=== PATIENT | male | born 1960 | race Caucasian/White ===

== ENCOUNTER 2024-03-23 18:02 | Emergency (ER) | payer OTHER ==
[2024-03-23 18:15] VITALS: RESP 18
--- NOTE | 2024-03-23 18:47 | ED ---
GI Bleed HPI - General Source: patient, RN notes reviewed Mode of arrival: ambulatory Limitations: no limitations <Fouzia French - Last Filed: 03/23/24 18:46> - History of Present Illness MD complaint: melena Onset/Timin -: week(s) Quality: dull Consistency: intermittent, now resolved Associated Symptoms: denies other symptoms Treatments Prior to Arrival: none <Dov Lozoya - Last Filed: 04/05/24 04:52> - General Chief complaint: GI Bleed Stated complaint: GI BLEED Time Seen by Provider: 03/23/24 18:46 - History of Present Illness Initial comments: Quick note: 63-year-old male presented to the ER with a chief complaint of black tarry stools. Patient reports his first episode occurred about a week ago. He notes over the weekend he has had multiple episode of dark tarry/bloody stools. Patient denies any blood thinner use. He has recently taken Pepto-Bismol. He does endorse mild left lower quadrant abdominal pain. (Fouzia French) As noted, the patient had dark tarry stool with some blood 1 week ago. He had further episodes, 3 of those on Friday and 2 yesterday. The patient did have some right lower quadrant pain, and contrast to note above, but states none currently. No fever or chills. No nausea or vomiting. No change in urination. Patient states that he reported the symptoms to his primary physician, Dr. Hurst, and was directed by the clinic to go to the emergency department " have imaging." (Dov Lozoya) - Related Data Previous Rx's Medication Instructions Recorded Pantoprazole [Protonix] 40 mg PO DAILY #10 tab 03/24/24 Allergies Allergy/AdvReac Type Severity Reaction Status Date / Time Sulfa (Sulfonamide AdvReac Swelling Verified 03/23/24 18:15 Antibiotics) Review of Systems ROS Other: All systems not noted in ROS Statement are negative. <Fouzia French - Last Filed: 03/23/24 18:46> ROS Other: All systems not noted in ROS Statement are negative. Constitutional: Denies: fever, chills Respiratory: Denies: cough, dyspnea Cardiovascular: Denies: chest pain, palpitations Gastrointestinal: Reports: abdominal pain, melena. Denies: nausea, vomiting, diarrhea, constipation, hematemesis Genitourinary: Denies: dysuria, hematuria, testicular pain Musculoskeletal: Denies: back pain Skin: Denies: rash Neurological: Denies: headache, weakness, numbness Hematological/Lymphatic: Denies: easy bleeding <DevoraDov - Last Filed: 04/05/24 04:52> ROS Statement: Those systems with pertinent positive or pertinent negative responses have been documented in the HPI. Past Medical History Past Medical History: Diabetes Mellitus, Hyperlipidemia, Hypertension History of Any Multi-Drug Resistant Organisms: None Reported Past Surgical History: Hernia Repair Past Psychological History: No Psychological Hx Reported Smoking Status: Current some day smoker Past Alcohol Use History: None Reported Past Drug Use History: None Reported <Fouzia French - Last Filed: 03/23/24 18:46> General Exam Limitations: no limitations <FarazMar mercadonn - Last Filed: 03/23/24 18:46> Limitations: no limitations General appearance: alert, in no apparent distress Head exam: Present: atraumatic, normocephalic Eye exam: Present: normal appearance. Absent: scleral icterus, conjunctival injection ENT exam: Present: normal oropharynx Neck exam: Present: normal inspection Respiratory exam: Present: normal lung sounds bilaterally. Absent: respiratory distress, wheezes, rales, rhonchi, stridor, accessory muscle use Cardiovascular Exam: Present: regular rate, normal rhythm. Absent: normal heart sounds, systolic murmur, diastolic murmur, rubs, gallop GI/Abdominal exam: Present: soft. Absent: distended, tenderness, guarding, rebound, rigid, mass Rectal exam: Present: other (Patient declines) Extremities exam: Present: normal inspection, normal capillary refill. Absent: pedal edema, calf tenderness Back exam: Present: normal inspection. Absent: CVA tenderness (R), CVA tenderness (L) Neurological exam: Present: alert Skin exam: Present: warm, dry, intact, normal color. Absent: rash <Dov Lozoya - Last Filed: 04/05/24 04:52> - General Exam Comments Initial Comments: Visual Physical Exam Vital signs reviewed General: Well-appearing, nontoxic, no acute distress. Head: Normocephalic, atraumatic Eyes: PERRLA, EOMI ENT: Airway patent Chest: Nonlabored breathing Skin: No visual rash, normal skin tone Neuro: Alert and oriented 3 Musculoskeletal: No gross abnormalities (Fouzia French) Course Vital Signs 03/23/24 03/23/24 03/24/24 18:11 21:40 00:07 Temperature 128 F H 97.9 F Pulse Rate 91 79 Respiratory 18 18 Rate Blood Pressure 128/74 124/75 O2 Sat by Pulse 97 96 Oximetry 03/24/24 01:40 Temperature Pulse Rate 76 Respiratory 18 Rate Blood Pressure 115/80 O2 Sat by Pulse 97 Oximetry Medical Decision Making <Fouzia French - Last Filed: 03/23/24 18:46> - Lab Data Result diagrams: 03/23/24 21:40 03/23/24 21:40 <Dov Lozoya - Last Filed: 04/05/24 04:52> - Medical Decision Making I performed the quick note portion of this chart. Electronically signed by Fouzia French PA-C (Fouzia French) This patient is a 63-year-old man here with complaint of gastrointestinal bleeding. The patient's hemoglobin is lower than what is his usual. The patient did have tachycardia measured in the triage area though on my exam his heart rate is normal. His blood pressure normal. He had no further episodes of GI bleeding here. I did recommend that the patient be seen by gastroenterology which would require transfer as there is no coverage here tonight. The patient and I did have prolonged discussion, as well as including his , and they would like to follow-up as outpatient. As long as the patient has no further bleeding this may be acceptable. We discussed further care and follow-up as well as return parameters. The patient had CT of the abdomen pelvis that I interpreted as negative for free air, obstruction, or other acute surgical condition. Was pt. sent in by a medical professional or institution ([facility]rak[facility], [facility], urgent care, hospital, or fci...) When possible be specific @ -[No] Did you speak to anyone other than the patient for history (EMS, parent, family, police, friend...)? What history was obtained from this source @ -[Patient's contributed Did you review nursing and triage notes (agree or disagree)? Why? @ -[I reviewed and agree with nursing and triage notes] Were old charts reviewed (outside hosp., previous admission, EMS record, old EKG, old radiological studies, urgent care reports/EKG's, fci records)? Report findings @ -[No old charts were reviewed] Differential Diagnosis (chest pain, altered mental status, abdominal pain women, abdominal pain men, vaginal bleeding, weakness, fever, dyspnea, syncope, headache, dizziness, GI bleed, back pain, seizure, CVA, palpatations, mental health, musculoskeletal)? @ -[Differential GI Bleed: Esophageal varices, aortoenteric fistula, Renita-Wray, gastritis, peptic ulcer disease, diverticulosis, inflammatory bowel disease, hemorrhoids, fissure, colitis, malignancy, Meckels diverticulum, this is not meant to be an all- inclusive list. EKG interpreted by me (3pts min.). @ -[As above] X-rays interpreted by me (1pt min.). @ -[None done] CT interpreted by me (1pt min.). @ -I interpreted as above U/S interpreted by me (1pt. min.). @ -[None done] What testing was considered but not performed or refused? (CT, X-rays, U/S, labs)? Why? @ -[None] What meds were considered but not given or refused? Why? @ -[None] Did you discuss the management of the patient with other professionals (pr ofessionals i.e. , PA, CRIB TENDER, lab, RT, psych nurse, social media designer, director of event marketing, teacher, personnel officer, skilled nursing case manager)? Give summary @ -[No] Was smoking cessation discussed for >3mins.? @ -[No] Was critical care preformed (if so, how long)? @ -[No] Were there social determinants of health that impacted care today? How? (Homelessness, low income, unemployed, alcoholism, drug addiction, transportation, low edu. Level, literacy, decrease access to med. care, [facility], rehab)? @ -[No] Was there de-escalation of care discussed even if they declined (Discuss DNR or withdrawal of care, Hospice)? DNR status @ -[No] What co-morbidities impacted this encounter? (DM, HTN, Smoking, COPD, CAD, Cancer, CVA, ARF, Chemo, Hep., AIDS, mental health diagnosis, sleep apnea, morbid obesity)? @ -[None] Was patient admitted / discharged? Hospital course, mention meds given and route, prescriptions, significant lab abnormalities, going to OR and other pertinent info. @ -[See above Undiagnosed new problem with uncertain prognosis? @ -[No] Drug Therapy requiring intensive monitoring for toxicity (Heparin, Nitro, Insulin, Cardizem)? @ -[No] Were any procedures done? @ -[No] Diagnosis/symptom? @ -[Acute GI bleeding Acute, or Chronic, or Acute on Chronic? @ -[Acute Uncomplicated (without systemic symptoms) or Complicated (systemic symptoms)? @ -[Uncomplicated Side effects of treatment? @ -[No] Exacerbation, Progression, or Severe Exacerbation? @ -[No] Poses a threat to life or bodily function? How? (Chest pain, [place], [place], pneumonia, PE, COPD, DKA, ARF, appy, cholecystitis, CVA, Diverticulitis, Homicidal, Suicidal, threat to staff... and all critical care pts) @ -[There is low risk, requires close follow-up or return, as discussed with patient (Dov Lozoya) - Lab Data Lab Results 03/23/24 03/23/24 03/23/24 Range/Units 21:40 21:40 21:40 WBC 5.4 (3.8-10.6) k/uL RBC 4.02 L (4.30-5.90) m/uL Hgb 12.6 L (13.0-17.5) gm/dL Hct 37.4 L (39.0-53.0) % MCV 93.0 (80.0-100.0) fL MCH 31.3 (25.0-35.0) pg MCHC 33.6 (31.0-37.0) g/dL RDW 13.8 (11.5-15.5) % Plt Count 287 (150-450) k/uL MPV 7.7 Neutrophils % 57 % Lymphocytes % 32 % Monocytes % 6 % Eosinophils % 2 % Basophils % 1 % Neutrophils # 3.0 (1.3-7.7) k/uL Lymphocytes # 1.7 (1.0-4.8) k/uL Monocytes # 0.3 (0-1.0) k/uL Eosinophils # 0.1 (0-0.7) k/uL Basophils # 0.0 (0-0.2) k/uL PT 9.8 L (10.0-12.5) sec INR 0.9 (<1.2) APTT 21.1 L (22.0-30.0) sec Sodium 138 (137-145) mmol/L Potassium 4.1 (3.5-5.1) mmol/L Chloride 108 H (98-107) mmol/L Carbon Dioxide 25 (22-30) mmol/L Anion Gap 5 mmol/L BUN 23 H (9-20) mg/dL Creatinine 0.73 (0.66-1.25) mg/dL Est GFR (CKD-EPI)AfAm >90 (>60 ml/min/1.73 sqM) Est GFR (CKD-EPI)NonAf >90 (>60 ml/min/1.73 sqM) Glucose 146 H (74-99) mg/dL Plasma Lactic Acid Ashkan (0.7-2.0) mmol/L Calcium 8.9 (8.4-10.2) mg/dL Total Bilirubin 0.4 (0.2-1.3) mg/dL AST 18 (17-59) U/L ALT 29 (4-49) U/L Alkaline Phosphatase 80 (38-126) U/L Total Protein 6.1 L (6.3-8.2) g/dL Albumin 3.8 (3.5-5.0) g/dL Amylase 48 (30-110) U/L Lipase 59 (23-300) U/L // Range/Units 21:40 WBC (3.8-10.6) k/uL RBC (4.30-5.90) m/uL Hgb (13.0-17.5) gm/dL Hct (39.0-53.0) % MCV (80.0-100.0) fL MCH (25.0-35.0) pg MCHC (31.0-37.0) g/dL RDW (11.5-15.5) % Plt Count (150-450) k/uL MPV Neutrophils % % Lymphocytes % % Monocytes % % Eosinophils % % Basophils % % Neutrophils # (1.3-7.7) k/uL Lymphocytes # (1.0-4.8) k/uL Monocytes # (0-1.0) k/uL Eosinophils # (0-0.7) k/uL Basophils # (0-0.2) k/uL PT (10.0-12.5) sec INR (<1.2) APTT (22.0-30.0) sec Sodium (137-145) mmol/L Potassium (3.5-5.1) mmol/L Chloride (98-107) mmol/L Carbon Dioxide (22-30) mmol/L Anion Gap mmol/L BUN (9-20) mg/dL Creatinine (0.66-1.25) mg/dL Est GFR (CKD-EPI)AfAm (>60 ml/min/1.73 sqM) Est GFR (CKD-EPI)NonAf (>60 ml/min/1.73 sqM) Glucose (74-99) mg/dL Plasma Lactic Acid Ashkan 0.9 (0.7-2.0) mmol/L Calcium (8.4-10.2) mg/dL Total Bilirubin (0.2-1.3) mg/dL AST (17-59) U/L ALT (4-49) U/L Alkaline Phosphatase (38-126) U/L Total Protein (6.3-8.2) g/dL Albumin (3.5-5.0) g/dL Amylase (30-110) U/L Lipase (23-300) U/L Disposition <Fouzia French - Last Filed: 03/23/24 18:46> Is patient prescribed a controlled substance at d/c from ED?: No <Dov Lozoya - Last Filed: 04/05/24 04:52> Clinical Impression: GI bleeding Disposition: HOME SELF-CARE Condition: Good Instructions (If sedation given, give patient instructions): Gastrointestinal Bleeding (ED) Prescriptions: Pantoprazole [Protonix] 40 mg PO DAILY #10 tab Referrals: None,Stated [REFERRING] - 1-2 days Kim Chauhan MD [STAFF PHYSICIAN] - 1-2 days
[2024-03-23 22:14] VITALS: TEMP 97.9
[2024-03-23] MEDS: PANTOPRAZOLE 40 MG/10 ML VIAL IVP STA (22:14)
[2024-03-23 22:17] LABS: Basophils % (A) 1 %; Eosinophils # (A) 0.1 k/uL (0-0.7); Eosinophils % (A) 2 %; HCT 37.4 % (39.0-53.0); HGB 12.6 gm/dL (13.0-17.5); Lymphocytes # (A) 1.7 k/uL (1.0-4.8); Lymphocytes % (A) 32 %; MCH 31.3 pg (25.0-35.0); MCHC 33.6 g/dL (31.0-37.0); Mean Platelet Volume 7.7; Monocytes # (A) 0.3 k/uL (0-1.0); Monocytes % (A) 6 %; Neutrophils % (A) 57 %; Platelet Count 287 k/uL (150-450); RBC 4.02 m/uL (4.30-5.90); RDW 13.8 % (11.5-15.5); WBC 5.4 k/uL (3.8-10.6)
[2024-03-23 22:36] LABS: ALT 29 U/L (4-49); AST 18 U/L (17-59); African American GFR (CKD) >90 (>60 ml/min/1.73 sqM); Albumin 3.8 g/dL (3.5-5.0); Alkaline Phosphatase 80 U/L (38-126); Amylase 48 U/L (30-110); Anion Gap 5 mmol/L; Blood Urea Nitrogen 23 mg/dL (9-20); Calcium 8.9 mg/dL (8.4-10.2); Carbon Dioxide 25 mmol/L (22-30); Chloride 108 mmol/L (98-107); Glucose 146 mg/dL (74-99); Lipase 59 U/L (23-300); Non-African American GFR(CKD) >90 (>60 ml/min/1.73 sqM); Potassium 4.1 mmol/L (3.5-5.1); Sodium 138 mmol/L (137-145); Total Bilirubin 0.4 mg/dL (0.2-1.3); Total Protein 6.1 g/dL (6.3-8.2)
[2024-03-23 22:46] LABS: INR 0.9 (<1.2); Partial Thromboplastin Time 21.1 sec (22.0-30.0); Prothrombin Time 9.8 sec (10.0-12.5)
[2024-03-24] MEDS: SODIUM CHLORIDE 0.9% 500 ML 500 ML IV STA (00:04)
--- NOTE | 2024-03-24 00:45 | CT ---
EXAM: CT Abdomen and Pelvis With Intravenous Contrast CLINICAL HISTORY: ITS.REASON CT Reason: RLQ pain TECHNIQUE: Axial computed tomography images of the abdomen and pelvis with intravenous contrast. CTDI is 31.8 mGy and DLP is 1646.8 mGy-cm. This CT exam was performed using one or more of the following dose reduction techniques: automated exposure control, adjustment of the mA and/or kV according to patient size, and/or use of iterative reconstruction technique. COMPARISON: No relevant prior studies available. FINDINGS: Lung bases: Unremarkable. No mass. No consolidation. ABDOMEN: Liver: Hepatic steatosis. Gallbladder and bile ducts: Unremarkable. No calcified stones. No ductal dilation. Pancreas: Unremarkable. No mass. No ductal dilation. Spleen: Unremarkable. No splenomegaly. Adrenals: Unremarkable. No mass. Kidneys and ureters: Unremarkable. No solid mass. No hydronephrosis. Stomach and bowel: Diverticulosis, without acute diverticulitis. No small bowel obstruction. No free intraperitoneal air. PELVIS: Appendix: Normal appendix. Bladder: Unremarkable. No mass. Reproductive: Unremarkable as visualized. ABDOMEN and PELVIS: Intraperitoneal space: Unremarkable. No free air. No significant fluid collection. Bones/joints: Degenerative changes of the spine. Grade 1 anterolisthesis of L5 on S1 measures 7 mm. Bilateral pars defect at L5. No acute fracture. No dislocation. Soft tissues: Unremarkable. Vasculature: Atherosclerotic changes of the aorta. No abdominal aortic aneurysm. Lymph nodes: Unremarkable. No enlarged lymph nodes. IMPRESSION: No acute findings in the abdomen or pelvis.
[2024-03-24 01:46] VITALS: BP 115/80; PULSE 76
== END 2024-03-24 01:40 | disposition home or self-care (01) ==
LOC: EC 18:02
DX: K92.2 Gastrointestinal hemorrhage, unspecified (principal); F17.200 Nicotine dependence, unspecified, uncomplicated; Z88.2 Allergy status to sulfonamides
CPT/HCPCS: 36415; 80053; 82150; 83605; 83690; 85025; 85610; 85730; 74177; 99285; 96374; C9113; Q9967

== ENCOUNTER → 2025-01-05 | Outpatient (CLI) | payer MEDICARE, OTHER ==
--- NOTE | 2025-01-05 16:21 | XR ---
EXAMINATION TYPE: XR chest 2V DATE OF EXAM: 01/05/2025 4:17 PM COMPARISON: None CLINICAL INDICATION: Male, 64 years old with history of R22.2 LOCALIZED SWELLING, MASS AND LUMP, TRUN K; [facility] TECHNIQUE: XR chest 2V Frontal and lateral views of the chest. FINDINGS: Lungs/Pleura: There is no evidence of pleural effusion, focal consolidation, or pneumothorax. Pulmonary vascularity: Unremarkable. Heart/mediastinum: Cardiomediastinal silhouette is unremarkable. Musculoskeletal: No acute osseous pathology. IMPRESSION: No acute cardiopulmonary disease/process. [facility] Carmelina Acosta, , 01/05/2025 4:19 PM
== END | disposition home or self-care (01) ==
LOC: RADXRMAIN 15:59
PROVIDERS: ATTEND Family Medicine
DX: R22.2 Localized swelling, mass and lump, trunk (principal)
CPT/HCPCS: 71046